=== PATIENT | male | born 1950 | race Caucasian/White ===

== ENCOUNTER 2020-05-16 13:35 | Emergency (ER) | payer OTHER ==
[~2020-05-16] VITALS: Ht 167.6 cm; Wt 83.9 kg
[2020-05-16] MEDS ORDERED: COZAAR 25 MG TA25 M1 PO (13:51)
[2020-05-16] MEDS ORDERED: SYNTHROID25 MC1 PO (13:51)
[2020-05-16] MEDS ORDERED: OMEPRAZOLE 20 M20 M1 PO (13:51)
[2020-05-16] MEDS ORDERED: NORCO 5-325 TA1 EAC2 PO (15:33)
[2020-05-16] MEDS ORDERED: IBUPROFEN 800800 M1 PO (15:33)
[2020-05-16 16:31] VITALS: BP 170/73
== END 2020-05-16 16:34 | disposition home or self-care (01) ==
LOC: M.ERS 13:35
DX: S82.891A Other fracture of right lower leg, initial encounter for closed fracture (principal); S82.391A Other fracture of lower end of right tibia, initial encounter for closed fracture; S82.831A Other fracture of upper and lower end of right fibula, initial encounter for closed fracture; I10 Essential (primary) hypertension; Z79.899 Other long term (current) drug therapy; Z98.890 Other specified postprocedural states; X50.1XXA Overexertion from prolonged static or awkward postures, initial encounter; Y93.89 Activity, other specified; Y92.89 Other specified places as the place of occurrence of the external cause; Y99.9 Unspecified external cause status